=== PATIENT | female | born 2000 | race Caucasian/White ===

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

== ENCOUNTER 2021-01-15 11:34 | Emergency (ER) | payer OTHER ==
[~2021-01-15] VITALS: Wt 63.5 kg
[~2021-01-15 11:34] MED LIST changes: +NAPROSYN500 MG PO
[2021-01-15 12:05] LABS: BASO % 0.4 % (0.0-1.0); EOS # 0.2 10*3/uL (0.0-0.4); EOS % 1.6 % (1.0-4.0); HEMATOCRIT 35.9 % (37.0-47.0); LYMPH # 2.8 10*3/uL (1.3-4.4); LYMPH % 26.5 % (27.0-41.0); MEAN CELL VOLUME 90.7 fl (81.0-99.0); MEAN CORPUSCULAR HGB 30.1 pg (27.0-31.0); MEAN CORPUSCULAR HGB CONC 33.1 g/dl (33.0-37.0); MEAN PLATELET VOLUME 10.2 fl (9.6-12.3); MONO # 0.9 10*3/uL (0.1-1.0); MONO % 8.8 % (3.0-9.0); NEUT # 6.5 10*3/uL (2.3-7.9); NEUT % 62.4 % (47.0-73.0); PLATELET COUNT AUTOMATED 229 10*3/uL (130-400); RED BLOOD COUNT 3.96 10*6/uL (4.10-5.10); RED CELL DISTRI WIDTH 12.5 % (0-14.5); WHITE BLOOD COUNT 10.4 10*3/uL (4.8-10.8)
[2021-01-15 12:20] LABS: ALBUMIN 3.8 gm/dl (3.1-4.5); ALKALINE PHOSPHATASE 54 U/L (45-117); BUN 6 mg/dl (7-24); CHLORIDE 109 mmol/L (98-107); CREATININE 0.65 mg/dL (0.55-1.02); POTASSIUM 2.8 mmol/L (3.5-5.1); SGOT/AST 9 IU/L (3-35); SGPT/ALT 17 U/L (12-78); SODIUM 139 mmol/L (136-145); TOTAL PROTEIN 7.5 gm/dL (6.4-8.2)
[2021-01-15 12:23] LABS: BETA-HCG, QUANT < 1.0 mIU/mL (1-3)
[2021-01-15 13:52] LABS: BILIRUBIN 1+ (Negative); BLOOD 3+ (Negative); CLARITY Cloudy (Clear); COLOR Dark Yellow (Yellow); GLUCOSE Negative (Negative); KETONE Trace (Negative); LEUKO ESTERASE 1+ (Negative); NITRITE Positive (Negative); PH 5.5 (4.5-8.0)
[2021-01-15 14:02] LABS: BACTERIA 4+; EPITHELIAL CELLS 0-2; MUCOUS 1+; RBC 31-40 rbc/hpf (0-2)
[2021-01-15] MEDS ORDERED: MACROBID100 M1 PO (14:55)
[2021-01-15] MEDS ORDERED: ZOFRAN4 MG PO (14:58)
== END 2021-01-15 15:08 | disposition home or self-care (01) ==
LOC: ED 11:34
PROVIDERS: Student in an Organized Health Care Education/Training Program
DX: N94.6 Dysmenorrhea, unspecified (principal); N39.0 Urinary tract infection, site not specified; E87.6 Hypokalemia; Z79.899 Other long term (current) drug therapy

== ENCOUNTER 2021-07-13 20:35 | Emergency (ER) | payer OTHER ==
[~2021-07-13] VITALS: Ht 157.4 cm; Wt 68.0 kg
[~2021-07-13 20:35] MED LIST changes: +MACROBID100 M1 PO; +ZOFRAN4 MG PO
== END 2021-07-13 21:37 | disposition left against medical advice (07) ==
LOC: ED 20:35
DX: R05 Cough (principal); R11.0 Nausea; Z53.21 Procedure and treatment not carried out due to patient leaving prior to being seen by health care provider